=== PATIENT | female | born 1950 | race Caucasian/White ===

== ENCOUNTER 2016-12-01 09:15 | Emergency (ER) | payer OTHER ==
[~2016-12-01] VITALS: Ht 157.5 cm; Wt 86.2 kg
[~2016-12-01 09:15] MED LIST: KEFLEX500 M1 PO
[2016-12-01] MEDS ORDERED: LEVOTHYROXIN0.025 M1 PO (09:19)
[2016-12-01] MEDS ORDERED: [UNRECOGNIZED DRUG - OTHER] PO (09:19)
[2016-12-01] MEDS ORDERED: TELMISARTAN PO (09:19)
--- NOTE | 2016-12-01 09:38 | Emergency Room Report ---
History of Present Illness Time Seen by MD Boss Presenting Problem in Triage Pt arrived:Walked Presenting Problem:PT WOKE UP THIS AM WITH SHARP PAIN IN THE LEFT SIDE OF HER NECK SHOOTING DOWN INTO HER SHOULDER Onset of symptoms date/time:/ or onset unknown for:MEDICAL HX UNKNOWN Treatment Prior to Arrival: WAITRESS Provided by: Sepsis Risk Assessment: Temp: 98.1 B/P: 180/83 MAP: 115 Pulse: 99 Resp: 16 Recent fever? N Clinical Suspician of Infection? N Mental Status: 1 - Regular (Normal Baseline) Sepsis Risk:Low Sepsis Risk Have you (or family members/close friends) recently traveled outside the [place]? N If Yes, where/when: Have you had exposure to infectious disease within the past month? N TB? Other? Specify: Patient is a very active woman who awoke this morning with lancinating posterior left neck pain with movement; took Ibuprofen 600 mg just WAITRESS with no relief. No headache or neurological sx. No vomiting or abdominal pain; no fever, cough, cold, congestion, sore throat or flu symptoms. No rash. No hx of shingles. No trauma. Pain is localized to left trapezius region. ALLERGIES Coded Allergies: No Known Allergies (12/01/16) Home Medications Reported Medications Levothyroxine Sodium (Levothyroxine 0.025MG) 0.025 MG PO DAILY #90 TELMISARTAN/HYDROCHLOROTHIAZID (Telmisartan-Hctz 80-25 MG Tab) 1 TAB PO DAILY #90 History Medical History General CAD? No Angina: No [place]: No Hypertension? Yes Hyperlipidemia? No CHF? No DVT? No PE? No COPD? No Asthma? No Anemia? No GERD? No Gastric ulcers? No GI Bleed? No Hernia? No Thyroid Problems? Yes Hypothyroidism? No CVA? No Seizures? No Diabetes? No Renal Insuffiency? No End Stage Renal Disease? No UTI? Yes Stones? No BPH? No GB Disease: Yes Nephritic Syndrome? No Asplenia? No Hepatitis? No Sickle Cell Disease? No Arthritis? No Migraines? No Cataracts? No Glaucoma? No MRSA? No HIV? No TB? No Anxiety? No Depression? No Cancer? No Site: NN More? No Immunization Hx DT/Tetanus > 10 Years Ago Surgical Hx Previous Surgery?Y Hysterect GALLBLADDER APPY Family History Family Hx Diabetes Yes CAD Yes Hypertension No Hyperlipidemia No Cancer Yes TB No Social History Smoking Hx Smoker: Never Smoker Tobacco: No Alcohol Alcohol: No Review of Systems All Other Systems Reviewed and Negative Musculoskeletal see HPI, muscle pain, neck pain Physical Exam Vital Signs Vital Signs Date Time Temp Pulse Resp B/P Pulse O2 O2 Flow FiO2 Ox Delivery Rate 12/01 1402 84 16 130/70 98 12/01 1251 98.1 70 16 132/74 98 12/01 1055 70 16 132/74 98 12/01 1019 75 16 163/80 98 12/01 1017 18 12/01 0952 18 12/01 0916 98.1 99 16 180/83 98 General Appearance normal appearance, WD/WN, mild distress Eye Exam - bilateral eye normal exam, bilateral eye PERRL Neck Exquisitely tender over left trapezius at insertion point. No jayne meningismus. No bruit or masses noted. No vesicles or rash noted, but is slightly reddened: patient states has been rubbing that area. Pain does not radiate to jaw or face and face is nontender with tapping over anglican and cheek. Respiratory Status Yes: trachea midline, chest symmetrical, non tender chest. No: respiratory distress, tender on palpation, use of accessory muscles, pain on inspiration, pain on expiration, productive cough, non productive cough. Lung Sounds bilateral: normal breath sounds, lungs clear. Cardiovascular normal exam, regular rate/rhythm, no peripheral edema, no gallop, no JVD, no murmur, no rub, normal peripheral pulses Gastrointestinal normal bowel sounds, normal exam, soft, no organomegaly, no pulsatile mass, no guarding, no rebound Extremities non-tender, normal range of motion, normal inspection, normal capillary refill, no calf tenderness, no pedal edema Strength 5 Upper Ext (L), 5 Upper Ext (R), 5 Lower Ext (L), 5 Lower Ext (R) Neurologic alert, insulator tester II-XII nml as tested, normal exam, no motor/sensory deficits, oriented x 3, No palsies noted at all, finger to nose w/o dysmetria, operator electronic warfare equal, no tremor, brisk triceps and Achilles reflexes noted. Overall nonfocal exam. Patient ambulatory and alert. Glascow Coma Scale Glascow Coma Scale Response Value EYE response: 4 Spontaneously 4 MOTOR response: 6 OBEYS 6 VERBAL response: 5 Oriented & Converses 5 Total 15 Reflexes DTR 3+ tricep (R), 3+ tricep (L), 3+ ankle (R), 3+ ankle (L) Skin intact, normal color, warm/dry, no rash cons.w/shingles Lymphatic no adenopathy Medical Decision Making LABS/Meds/Orders Pt receiving controlled substance in ED? Yes Devin was queried for this patient? Yes Reference #: [id number] Risks/benefits of using a controlled substance for treatment were discussed w/pt by me Results/Orders Laboratory Tests 12/01/16 1020: Troponin I < 0.02 12/01/16 1020: Sodium 134 L, Potassium 3.2 L, Chloride 101, Carbon Dioxide 26, BUN 18, Creatinine 0.8, Estimated Creat Clear 95, Estimated GFR (MDRD) 72, Glucose 136 H, Calcium 9.5, WBC 11.5 H, RBC 4.76, Hgb 13.9, Hct 39.8, MCV 83.6, RDW 14.2, Plt Count 244, MPV 10.0, Gran % 76.4, Gran # 8.8 H, Lymphocytes % 16.6, Monocytes % 5.1, Eosinophils % 1.4, Basophils % 0.4, Lymphocytes # 1.9, Monocytes # 0.6, Eosinophils # 0.2, Basophils # 0.1, PUBS MCHC 35.0, MCH 29.3 Current Medication Orders Sig/Myron Start time Last Medication Dose Route Stop Time Status Admin Methylprednisolone 125 MG ONCE ONE 12/01 1100 DC 12/01 Sodium Succinate IV 12/01 1101 1053 Methylprednisolone 0 .STK-MED ONE 12/01 1051 DC Sodium Succinate .ROUTE Ondansetron HCl 4 MG ONCE ONE 12/01 1045 DC 12/01 IV 12/01 1046 1040 Ondansetron HCl 0 .STK-MED ONE 12/01 1039 DC .ROUTE Diphenhydramine HCl 12.5 MG ONCE ONE 12/01 1030 DC 12/01 IV 12/01 1031 1031 Diphenhydramine HCl 0 .STK-MED ONE 12/01 1030 DC .ROUTE Butorphanol Tartrate 0 .STK-MED ONE 12/01 1016 DC .ROUTE Butorphanol Tartrate 1 MG ONCE ONE 12/01 1015 DC 12/01 IV 12/01 1016 1017 Morphine Sulfate 4 MG ONCE ONE 12/01 1000 DC 12/01 IM 12/01 1001 0952 Ondansetron HCl 4 MG ONCE ONE 12/01 1000 DC 12/01 IM 12/01 1001 0953 Morphine Sulfate 0 .STK-MED ONE 12/01 931 DC .ROUTE Ondansetron HCl 0 .STK-MED ONE 12/01 931 DC .ROUTE Morphine Sulfate 4 MG ONCE ONE 12/01 0930 CAN IV 12/01 930 Morphine Sulfate 4 MG ONCE ONE 12/01 0830 CAN IV 12/01 930 Ondansetron HCl 4 MG ONCE ONE 12/01 0930 CAN IV 12/01 930 Ondansetron HCl 4 MG ONCE ONE 12/01 929 CAN IV 12/01 930 Sodium Chloride 10 ML PRN PRN 12/01 929 AC IV 12/02 923 Sodium Chloride 10 ML PRN PRN 12/01 929 AC IV 12/02 928 Orders Procedure Date/time Status DIET-NOTHING BY MOUTH 12/01 L Active MRI-C-SPINE W/O 12/01 112 Active MRI-BRAIN W/O 12/01 112 Active MRI-3D RENDERING/MYELOGRAM 12/01 112 Active 12 LEAD EKG-MARLENY (INITIAL) 12/01 1055 Active ELECTROCARDIOGRAM REQUEST 12/01 1055 Active TROPONIN I 12/01 105 Complete IV SALINE LOCK 12/01 928 Active CBC WITH AUTO DIFF 12/01 928 Complete BASIC METABOLIC PROFILE 12/[address] HEAD REQ 12/[address] SCAN REQUEST 12/01 924 Complete IV SALINE LOCK 12/01 924 Active CM/EKG CM/EKG EKG rate, NSR, rhythm, no ectopy, normal QRS, normal NV (Q waves V1 and V2 noted) Comments no change from prior 09/06/15 XRAY/CT/US XRAY/CT/US XRAY chest (MRI head/spine neg per rad.) CT head, C-spine CT interpretation by reviewed by me (report reviewed) Time results known: 1119 CT Results DJD, recommendation for MR if persistent symptoms; MR ordered. Comment d/w Dr. Marquez: MRI shows no acute findings, just spondylosis; no herniation noted. Progress ED Progress Notes 1 Date 12/01/16 Time 1030 Comment Pain significantly improved. Feeling anxious after Stadol given; will recheck s/ p Benadryl IV. ED Progress Notes 2 Date 12/01/16 Time 1110 Comment Had vomiting and anxiety after Stadol given; better now after Benadryl and Solumedrol; relaxing and no further n/v, pain much better controlled; awaiting CT C spine results to be posted and will also do cardiac w/u due to vomiting, although vomiting started immediately after administration of Stadol. ED Progress Notes 3 Date 12/01/16 Time 1414 Comment Although pain was initially very intense, she is better now. Recheck patient: no anxiety, no further vomiting, pain under control, no new symptoms neurologically , will f/u Dr. Hardy. Departure Departure Time of Disposition 141 Disposition DC Home or Self Care(routine) Clinical Impression Primary Impression: Neck pain, acute Condition STABLE Referrals Antony ZAYAS,Mario Alberto Ewing (Family) Patient Instructions DI for Neck Pain Additional Instructions See Dr. Hardy for follow up; watch for any unusual or new symptoms such as rash/shingles. Rx Naproxen and Lortab; list Stadol as an allergy in the future. Discharge Counseling Counseled pt/family regarding diagnosis, test results, R/B of controlled subst., medications/RX, home care, follow up needs Prescriptions Current Visit Scripts NAPROXEN (NAPROXEN 500MG TAB) 500 MG PO BIDP PRN pain #20 TAB HYDROCODONE/ACETAMINOPHEN (Lortab 5-325 MG Tablet) 1 TAB PO Q6HP PRN pain #20 TAB ED Critical Care Critical Care No at 1418
[2016-12-01 10:34] LABS: HEMOGLOBIN 13.9 g/dL (12.2-16.2); LYMPH # 1.9 K/mm3 (0.7-4.5); LYMPH % 16.6 % (10-50.0)
--- NOTE | 2016-12-01 10:45 | RADIOLOGY REPORT PS360 ---
CT HEAD WITHOUT CONTRAST CT BONE WINDOWS ORDERING PHYSICIAN : Annie Horta MD PATIENT AGE: 66 years GENDER: Female HISTORY: NECK PAIN headache and neck pain severe unable straighten neck pain extends to head PROCEDURE: Routine axial images head with brain & bone windows COMPARISON: No previous studies FINDINGS No acute intracranial findings. No hemorrhage. No mass. No subdural nor extra-axial collection. The ventricles and basal cisterns appear satisfactory. Savage and white matter patterns satisfactory. The posterior fossa appear satisfactory and unremarkable. The skull is intact. The visualized portions of the paranasal sinuses are clear. Incidental note of Opacified right qian bullosa. Minor observation Mastoid air cells and middle ear & IACs are unremarkable. IMPRESSION: No acute intracranial findings. Brain within normal limits
--- NOTE | 2016-12-01 11:05 | RADIOLOGY REPORT PS360 ---
CT CERVICAL SPINE W/O CONT ORDERING PHYSICIAN : Annie Horta MD PATIENT AGE: 66 years GENDER: Female INDICATION: NECK PAIN Neck pain severe THIS morning unable straighten head and neck due to severe pain. TECHNIQUE: Helical CT scanning through the C-spine with sagittal and coronal reconstructions on CT workstation. COMPARISON: January 2009 C-spine series radiograph CT chest 2014 included lower C-spine and utilized as well. FINDINGS No acute fracture nor subluxation. Normal alignment of the C-spine. Degenerative changes evident Degenerative disc changes and developing cervical spondylosis are most notable at C5/6. C5-C6 Mild disc space narrowing posteriorly with mild posterior hypertrophic ridging and spurring. Most evident to the right & left of midline reflecting uncovertebral joint hypertrophy. Features are relatively minimal and only just abuts the thecal sac. If pain persist consider MR to further evaluate in better evaluate for disc protrusion C3/4. Mild central spurring from posterior superior margin C4 at midline. This mildly indents the anterior aspect of the thecal sac. The distal impinge upon cord. C6/7. Question minor central disc bulge Degenerative facet changes most evident bilaterally C2/3 C3/4, C4/5,. And less pronounced towards lower C-spine. At C3/4 the hypertrophic with mild encroachment upon the right foramen. Prevertebral soft tissues appear normal. Scattered small nodes throughout the cervical spine.. Apical pleural and parenchymal scarring is moderately pronounced but similar to the 2015 CT chest and I believe stable merely reflecting scarring. The patient does have chronic lung changes which would benefit from follow-up as well. Right and left TMJ appear intact. Patient a dense less with lower plate on fixed with screws to the anterior mandible. C1-C2 relationships appear normal. Odontoid intact. Cranial cervical junction satisfactory. IMPRESSION: No acute findings. No fracture nor lesion. Normal alignment. Normal prevertebral soft tissues. Degenerative disc changes & spondylosis C-spine, most evident C5-C6 C5-C6.: Mild posterior hypertrophic ridging & mild Uncovertebral joint hypertrophy bilaterally Moderately pronounced degenerative, hypertrophic facet changes most evident from see 3 through C5. (Particularly evident to the right at C3/4 and to the left at C2 /3), If Persistent neck pain pain and/or radiculopathy consider MR to further evaluate
[2016-12-01] MEDS ORDERED: NAPROXEN SODIU500 MG PO (14:18)
[2016-12-01] MEDS ORDERED: LORTAB 5/3251 TAB PO (14:18)
[2016-12-01 14:25] VITALS: BP 130/70
--- NOTE | 2016-12-02 13:25 | RADIOLOGY REPORT PS360 ---
MRI-C-SPINE W/O, MRI-3D RENDERING/MYELOGRAM ORDERING PHYSICIAN : Annie Horta MD PATIENT AGE: 66 years GENDER: Female INDICATION: HEADACHE, NECK PAIN Could not move neck this morning. Severe neck pain. Left head left side pain. Pain with moving neck. TECHNIQUE: Sagittal STIR, T1, T2, axial T1 and T2. On 1.5T Siemens wide bore MRI. 3-D MR myelogram image set obtained & performed on MRI workstation. Additional sagittal thin section T2 weighted dataset obtained from this latter acquisition as well (---76 CPT) COMPARISON: CT cervical spine from yesterday FINDINGS The vertebral bodies appear intact with no fracture nor acute findings. Cranial cervical junction is normal. There are degenerative facet changes bilaterally most evident at the upper C-spine. These are nicely seen on previous CT and noted to be most pronounced at C2-C5 on the left. C2/3. Disc and cord normal C3/4. Disc and cord normal. C4/5 trace central disc bulge. Possible scant protrusion. This Minimal disc bulge yields very slight indentation upon the thecal sac at midline and just to the right of midline. C5-C6 mild disc space narrowing with mild cervical spondylosis. Mild/moderate bilateral uncovertebral joint hypertrophy which slightly indents anterior corners of thecal sac bilateral and yields mild/moderate bilateral foraminal encroachment C6/7. Cervical spondylosis. Mild posterior marginal osteophytes with posterior hypertrophic ridging an mild disc prominence most evident towards the left slightly indenting the anterior left aspect of the thecal sac.. Spinal canal measures just over 10 mm AP. Appearance approaching borderline spinal stenosis Close inspection initially question a tiny additional protrusion left paracentral on one of the axial image sets but but this is not confirmed on other views Findings above 1 Warrants correlation with clinical symptoms. Is there a level of radiculopathy? IMPRESSION: Cervical spondylosis at mid C-spine.Early degenerative changes.. No jayne disc herniation nor significant appearing protrusion. C6/7. Spondylosis with diffuse mild Disc/osteophyte features slightly indents the anterior thecal sac to the left more than right. Appearance approaching Borderline spinal stenosis at this level C5/6. Early degenerative disc changes with spondylosis. Bilateral uncovertebral joint hypertrophy slightly indents the thecal sac and yield mild/moderate bilateral foraminal encroachment. C4/5. Minimal disc prominence/minor central disc bulge, which slightly indents thecal sac just right of midline Moderate pronounced Degenerative facet changes most evident at the upper C-spine,-best seen on yesterday's CT.
--- NOTE | 2016-12-02 13:38 | RADIOLOGY REPORT PS360 ---
MRI-BRAIN W/O ORDERING PHYSICIAN : Annie Horta MD PATIENT AGE: 66 years GENDER: Female INDICATION: HEADACHE, NECK PAIN TECHNIQUE: Noncontrast Multiplanar FLAIR, T1, T2 weighted images along with axial diffusion/ADC imaging performed on 1.5 T. Siemens, MRI. COMPARISON: CT head without contrast 12/01/2016 earlier today FINDINGS -- No mass lesion. . Normal anatomy. Cranial cervical junction and sella normal. Ventricles appear normal. No subdural collection. A few scattered high signal foci deep white matter cerebral hemispheres bilaterally. In this age patient these are compatible with microangiopathic deep white matter high signal gliotic foci.. A few small foci noted seen bilaterally with a slightly more generous focus 5 mm noted anteriorly on the left cerebral hemisphere, as well as another similar area at the posterior medial left temporal lobe. Otherwise smaller tiny near pinpoint foci are seen in the periventricular white matter Diffusion images reveal no acute infarct or ischemia. There is no mass lesion or mass effect. The posterior fossa appears normal.. The IACs appear symmetric CP angle clear. Ventricles and basal cisterns appear normal. Brainstem, midbrain appear satisfactory. Sella unremarkable. Paranasal sinuses appear clear. Mild engorgement nasal turbinates. Upper normal mucosal thickening ethmoid air cells. Orbits unremarkable. Mastoid air cells unremarkable IMPRESSION:........................... No acute findings. No infarct or ischemia evident No mass lesion. Minor chronic small vessel deep white matter ischemic gliotic foci at cerebral hemispheres bilateral.. .
== END 2016-12-01 14:25 | disposition home or self-care (01) ==
LOC: ER 09:15
PROVIDERS: Emergency Medicine
DX: M54.2 Cervicalgia (principal); I10 Essential (primary) hypertension
CPT/HCPCS: J0595; J2405

== ENCOUNTER 2016-12-21 08:41 | Emergency (ER) | payer OTHER ==
[~2016-12-21] VITALS: Ht 157.5 cm; Wt 89.8 kg
[~2016-12-21 08:41] MED LIST changes: +LEVOTHYROXIN0.025 M1 PO; +LORTAB 5/3251 TAB PO; +NAPROXEN SODIU500 MG PO; +TELMISARTAN PO; +[UNRECOGNIZED DRUG - OTHER] PO
[2016-12-21] MEDS ORDERED: SIMVASTATIN20 MG PO (09:06)
[2016-12-21] MEDS ORDERED: OMEPRAZOLE40 MG PO (09:07)
[2016-12-21] MEDS ORDERED: SPIRIVA RE2.5 MCG/Ac IH (09:07)
--- NOTE | 2016-12-21 09:28 | Urgent Treatment Center Report ---
History of Present Issue Date/Time Seen by Provider 12/21/16 0911 Visit Reason Pt arrived:Walked Presenting Problem:c/o sneezing, congestion, chills, sore throat x 5 days. Location if Accident: Onset of symptoms date/time:/ or onset unknown for:MEDICAL HX UNKNOWN Have you (or family members/close friends) recently traveled outside the [place]? N If Yes, where/when: Have you had exposure to infectious disease within the past month? TB? Other? Specify: c/o "I think something in my head". Nasal congestion, rhinorrhea, head pressure, chills x 5 days. An occasional cough. Trouble sleeping due to congestion. Denies known fevers but hasn't monitored. No relief w/ benadryl "a few times". Pharmacist recommened cold and allergy pill. Taking it every 4-6 hours without relief. Nasal congestion not relieved w/ that and only relieved for a few hours w/ jeremy-synephrine nasal spray. Nasal saline helps but only briefly. 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 Source patient Exam Limitations no limitations ALLERGIES Coded Allergies: butorphanol (From STADOL) (12/21/16) Home Medications Reported Medications Levothyroxine Sodium (Levothyroxine 0.025MG) 0.025 MG PO DAILY #90 TELMISARTAN/HYDROCHLOROTHIAZID (Telmisartan-Hctz 80-25 MG Tab) 1 TAB PO DAILY #90 Simvastatin 20 MG PO DAILY #90 Tiotropium [place] (Spiriva Respimat) 2.5 MCG IH DAILY #12 Omeprazole (Omeprazole 40MG) 40 MG PO DAILY #90 History Medical History General CAD? No Angina: No [place]: No Hypertension? Yes Hyperlipidemia? Yes CHF? No DVT? No PE? No COPD? Yes Asthma? No Anemia? No GERD? No Gastric ulcers? No GI Bleed? No Hernia? No Thyroid Problems? Yes Hypothyroidism? No CVA? No Seizures? No Diabetes? No Renal Insuffiency? No UTI? Yes Stones? No BPH? No GB Disease: Yes Nephritic Syndrome? No Asplenia? No Hepatitis? No Sickle Cell Disease? No Arthritis? No Migraines? No Cataracts? No Glaucoma? No MRSA? No HIV? No TB? No Anxiety? No Depression? No Cancer? No Site: NN More? No Immunization HX DT/Tetanus > 10 Years Ago Surgical Hx Previous Surgery?Y Hysterect GALLBLADDER APPY SVP [employer] Hx LMP N/A Family History Family HX Diabetes Yes CAD Yes Hypertension No Hyperlipidemia No Cancer Yes TB No Social History Smoking Hx Smoker: Former Smoker Tobacco: Yes Type Cigarettes Alcohol Alcohol: No Review of Systems All Other Systems Reviewed and Negative Constitutional see HPI Eyes denies no symptoms reported ENT throat pain (worse at night), other (sneezing). denies: ear pain. Respiratory see HPI, denies shortness of breath Cardiovascular denies chest pain Gastrointestinal denies no symptoms reported Musculoskeletal denies other (no bodyaches) Skin denies no symptoms reported Psychiatric/Neurological denies headache Physical Exam Vital Signs Vital Signs Date Time Temp Pulse Resp B/P Pulse O2 O2 Flow FiO2 Ox Delivery Rate 12/21 0902 98.8 86 20 187/77 95 General Appearance normal appearance Eye Exam - bilateral eye normal exam Ear, Nose, Throat normal ENT inspection Neck non-tender, supple Respiratory Status No: respiratory distress (no cough). Lung Sounds posterior: crackles (base). left: crackles (base). Cardiovascular regular rate/rhythm, no murmur Neurologic alert Skin warm/dry Lymphatic no adenopathy (cervical) Medical Decision Making LABS/Meds/Orders Pt receiving controlled substance in ED? No Results/Orders Orders Procedure Date/time Status CHEST(2 VIEWS-NOT PORTABLE) 12/21 0917 Active XRAY/CT/US XRAY/CT/US XRAY chest XR interpretation by reviewed by me Xray Results possible PNA left base, consistent w/ crackles on exam Departure Departure Time of Disposition 0948 Disposition DC Home or Self Care(routine) Clinical Impression Primary Impression: Nasal congestion Secondary Impressions: Left lower lobe pneumonia Qualifiers: Pneumonia type: due to unspecified organism Qualified Code: J18.9 - Pneumonia, unspecified organism Condition STABLE Referrals Mario Alberto Hardy MD (Family) Be sure to FU immediatel for any new or worsening symptoms. FU w/ PCP tomorrow for kuldeep xray reading and in 2-3 days to ensure improvement. Patient Instructions DI for Nasal Congestion, DI for Pneumonia -- Adult Additional Instructions Discussed addiction potential with nasal spray such as jeremy-synephrine. Enc to transition to flonase. Pt reports nasal saline works just as well as jeremy- synephrine so using it more. Start antibiotic today. FU as discussed. FU for final xray result w/ PCP. Discharge Counseling Counseled pt/family regarding diagnosis, test results, medications/RX, home care, follow up needs Prescriptions Current Visit Scripts Azithromycin (Zithromycin (Z-FIDE) 250MG Tab) 250 MG PO DAILY #6 TAB TAKE TWO (2) TABLETS ON DAY 1, THEN ONE (1) TABLET DAY #2 THRU #5 at 0959
[2016-12-21] MEDS ORDERED: ZITHROMAX Z PA250 MG PO (09:52)
[2016-12-21 10:07] VITALS: BP 157/81
--- NOTE | 2016-12-21 10:50 | RADIOLOGY REPORT PS360 ---
CHEST(2 VIEWS-NOT PORTABLE) HISTORY: chills, congestion, cough, left base crackles ORDERING PHYSICIAN: MARGARITO LINDSAY APRN PATIENT AGE: 66 years COMPARISON: 06/27/2015 FINDINGS: The cardiomediastinal silhouette and pulmonary vascularity are within normal limits. There is mild coarsening of the bronchovascular markings with mild hyperinflation which may related to obstructive chronic bronchitis. Clinical correlation required. No lobar consolidation or collapse. . No acute bony abnormalities. IMPRESSION: Obstructive chronic bronchitis without evidence of acute infiltrate
== END 2016-12-21 10:08 | disposition home or self-care (01) ==
LOC: UTC 08:41
DX: J18.9 Pneumonia, unspecified organism (principal); I10 Essential (primary) hypertension

== ENCOUNTER 2017-11-03 08:15 | Day surgery (SDC) | payer OTHER ==
[~2017-11-03 08:15] MED LIST changes: +METFORMIN500 MG PO; +MICARDIS HCT 251 TAB PO; +OMEPRAZOLE40 MG PO; +SIMVASTATIN20 MG PO; +SPIRIVA RE2.5 MCG/Ac IH; +ZITHROMAX Z PA250 MG PO; +ZOFRAN ODT4 MG PO
--- NOTE | 2017-11-03 09:58 | Operative Note ---
Surgeon/Diagnoses Surgeon/Television Service Engineer(s) Date of procedure: 11/03/17 Surgeon: MD Andrey Quevedo Diagnoses Pre-op diagnosis: Skin lesions along mid/upper chest (neoplasms of uncertain behavior) Post-op diagnosis Same Procedure Procedure Procedure: Excision of 0.5 cm skin lesion from RIGHT upper chest and 1 cm skin lesion from LEFT upper chest Indications: CHANDANA CRANDALL is a 67 year-old Female with a history of skin neoplasms along the upper chest with physical characteristics consistent with possible basal cell carcinoma. The smaller right-sided lesion is palpable and the LEFT sided lesion "itches sometimes". Findings: 1 mm margin obtained around visible lesions Procedure Description: After informed consent was obtained, the patient was taken to the procedure room. Her upper chest was prepped and draped in a sterile fashion. After infiltration with local anesthetic an elliptical incision was made around both lesions. The 1 cm lesion on the LEFT was excised sharply to the level of the deeper subcutaneous tissue. The lesion was marked with suture (long lateral/ short superior). The RIGHT-sided 0.5 cm lesion was excised in the same manner. Skin was closed with a combination of 4-0 and 6-0 nylon. Dressings were applied and the patient was transferred to recovery. EBL (ml): 10 Anesthesia: 1 percent lidocaine Complications: No immediate Specimens: 1 cm LEFT upper chest skin lesion 0.5 cm RIGHT upper chest skin lesion Disposition Disposition: Stable to recovery from where she will be discharged home. at [id number]
[2017-11-03 10:57] VITALS: BP 131/68
== END 2017-11-03 10:05 ==
LOC: SDC 08:15
PROVIDERS: Surgery
PROC: 0HB5XZZ Excision of Chest Skin, External Approach (ICD-10-PCS; principal; 2017-11-03 08:45)
DX: D48.5 Neoplasm of uncertain behavior of skin (principal)